=== PATIENT | female | born 1935 | race Caucasian/White ===

== ENCOUNTER 2016-09-10 10:38 | Outpatient (CLI) | payer MEDICARE, BC ==
[~2016-09-10] VITALS: Ht 160 cm; Wt 56.8 kg
[~2016-09-10 10:38] MED LIST: ANACIN PO; ASPIR-LOW81 MG PO; ASPIRIN 32325 MG/TAB PO; ASPIRIN E.C. 8181 MG PO; CALCIUM + D 6001 TA1 PO; CARAFATE S1 GM/10 ML PO; LASIX 20MG TABL20 MG PO; LOMOTIL 0.025 M1 TAB PO; LORTAB 5/500 501 TAB; LORTAB 5/500 501 TAB PO; NORCO 325 MG-51 TAB PO; PERCOCET 325 MG1 TA2 PO; PRILOSEC 20MG20 MG PO; RECLAST5 MG/100 M IV; RT SPIRIVA18 MCG IH; SPIRIVA INH IH; VALIUM 2MG T2 MG/TAB PO; ZOFRAN 4MG T4 MG/TAB PO
[2016-09-10 11:09] VITALS: BP 144/52; PULSE 77; TEMP 97.6
== END 2016-09-10 14:11 | disposition home or self-care (01) ==
LOC: EUO 10:38
DX: M81.0 Age-related osteoporosis without current pathological fracture (principal)
CPT/HCPCS: J3489

== ENCOUNTER 2016-12-07 16:38 | Inpatient (IN) | payer MEDICARE, BC ==
[~2016-12-07] VITALS: Ht 162.6 cm; Wt 59.2 kg
[2016-12-07 18:00] VITALS: BP 172/68; PULSE 87; TEMP 98
[2016-12-07] MEDS ORDERED: XALATAN EYE DROPS OD (18:07)
[2016-12-07 19:25] LABS: MAGNESIUM 1.8 mg/dL (1.6-2.3); PHOSPHOROUS 3.4 mg/dL (2.5-4.5)
[2016-12-07 19:56] LABS: THYROID STIMULATING HORMONE 0.503 uIU/mL (0.465-4.680)
[2016-12-07 20:02] LABS: POTASSIUM 4.6 mmol/L (3.4-5.0)
[2016-12-07 21:25] VITALS: BP 1205/51; PULSE 71; TEMP 98.4
[2016-12-07 21:42] VITALS: BP 147/63; PULSE 79; TEMP 98.8
[2016-12-08] VITALS (11 sets, daily range): BP systolic 139–165; BP diastolic 46–90; PULSE 68–115; TEMP 97–98.4
[2016-12-08 07:44] LABS: ADJUSTED CALCIUM 9.2 mg/dL (8.4-10.2); ALBUMIN 3.7 gm/dL (3.5-5.0); BILIRUBIN,TOTAL 0.7 mg/dL (0.0-1.0); CREATININE, serum 0.77 mg/dL (0.52-1.25); POTASSIUM 3.7 mmol/L (3.4-5.0)
[2016-12-09] VITALS (7 sets, daily range): BP systolic 116–181; BP diastolic 53–89; PULSE 73–111; TEMP 97–98.7
[2016-12-10] VITALS (7 sets, daily range): BP systolic 111–142; BP diastolic 48–70; PULSE 71–99; TEMP 97.8–99.3
[2016-12-10 07:46] LABS: BASO % 0.9 % (0.0-2.0); EOS # 0.2 (0.0-0.7); EOS % 3.6 % (0-4.0); GRAN # 2.9 (1.4-6.5); GRAN % 62.3 % (42.2-75.2); HEMOGLOBIN 12.8 g/dl (12.5-16.0); LYMPH % 20.6 % (20.0-51.0); MEAN CELL VOLUME 88 fl (80.0-100.0); MEAN CORPUSCULAR HEMOGLOBIN 29 pg (27.0-31.0); MEAN CORPUSCULAR HGB CONC 33 g/dl (33.0-37.0); MEAN PLATELET VOLUME 10.3 fl (7.4-10.4); MONO # 0.6 (0.1-0.6); MONO % 12.4 % (1.7-9.3); PLATELET COUNT 129 K/mm3 (130-400); RED BLOOD COUNT 4.41 M/mm3 (4.10-5.30); REDCELL DISTRIBUTION WIDTH-CV 13.6 % (11.5-14.5); WHITE BLOOD COUNT 4.7 K/mm3 (4.8-10.8)
[2016-12-10 08:04] LABS: CALCIUM 9.2 mg/dL (8.4-10.2); POTASSIUM 3.9 mmol/L (3.4-5.0)
[2016-12-11 04:34] VITALS: BP 93/46; PULSE 87; TEMP 98.6
[2016-12-11 05:17] VITALS: BP 152/60
[2016-12-11 07:49] VITALS: BP 98/45; PULSE 78; TEMP 98.3
[2016-12-11 08:03] LABS: BASO % 0.8 % (0.0-2.0); EOS # 0.1 (0.0-0.7); EOS % 1.7 % (0-4.0); GRAN # 3.3 (1.4-6.5); GRAN % 70.3 % (42.2-75.2); HEMATOCRIT 38.7 % (37.0-47.0); HEMOGLOBIN 12.9 g/dl (12.5-16.0); LYMPH # 0.7 (1.2-3.4); LYMPH % 15.4 % (20.0-51.0); MEAN CELL VOLUME 87 fl (80.0-100.0); MEAN CORPUSCULAR HEMOGLOBIN 29 pg (27.0-31.0); MEAN CORPUSCULAR HGB CONC 33 g/dl (33.0-37.0); MEAN PLATELET VOLUME 9.9 fl (7.4-10.4); MONO # 0.6 (0.1-0.6); MONO % 11.6 % (1.7-9.3); PLATELET COUNT 112 K/mm3 (130-400); RED BLOOD COUNT 4.43 M/mm3 (4.10-5.30); REDCELL DISTRIBUTION WIDTH-CV 13.8 % (11.5-14.5); WHITE BLOOD COUNT 4.7 K/mm3 (4.8-10.8)
[2016-12-11 08:13] LABS: CALCIUM 9.5 mg/dL (8.4-10.2); CREATININE, serum 2.44 mg/dL (0.52-1.25); POTASSIUM 5.1 mmol/L (3.4-5.0)
[2016-12-11 10:46] LABS: CALCIUM 9.7 mg/dL (8.4-10.2); CREATININE, serum 2.43 mg/dL (0.52-1.25); POTASSIUM 5.1 mmol/L (3.4-5.0)
[2016-12-11 12:00] VITALS: BP 126/74; PULSE 85; TEMP 97.5
[2016-12-11 16:02] VITALS: BP 114/53; PULSE 81; TEMP 98.2
[2016-12-11 20:20] VITALS: BP 111/46; PULSE 74; TEMP 98.1
[2016-12-12] VITALS (7 sets, daily range): BP systolic 113–143; BP diastolic 42–65; PULSE 75–88; TEMP 97.5–98.7
[2016-12-12 06:48] LABS: CALCIUM 9.6 mg/dL (8.4-10.2); CREATININE, serum 2.87 mg/dL (0.52-1.25); MAGNESIUM 2.4 mg/dL (1.6-2.3)
[2016-12-12 06:53] LABS: POTASSIUM 6.1 mmol/L (3.4-5.0)
[2016-12-12 09:38] LABS: CALCIUM 9.7 mg/dL (8.4-10.2); CREATININE, serum 2.65 mg/dL (0.52-1.25); POTASSIUM 5.7 mmol/L (3.4-5.0)
[2016-12-12 14:36] LABS: PH 5 (5-8); SQUAMOUS EPITHELIAL 0-2 /hpf; URINE APPEARANCE Clear; URINE BACTERIA None Seen /hpf; URINE BILIRUBIN Negative (NEGATIVE); URINE BLOOD Negative (NEGATIVE); URINE COLOR Yellow; URINE GLUCOSE Negative (NEGATIVE); URINE KETONE Negative (NEGATIVE); URINE RBC 0-2 /hpf
[2016-12-12 14:46] LABS: URINE PROTEIN:CREAT RATIO 0.06 (0.00-0.14)
[2016-12-13] VITALS (16 sets, daily range): BP systolic 113–151; BP diastolic 43–59; PULSE 64–88; TEMP 97.7–98.8
[2016-12-13 06:16] LABS: BASO % 0.4 % (0.0-2.0); EOS # 0.2 (0.0-0.7); EOS % 7.5 % (0-4.0); GRAN # 1.1 (1.4-6.5); GRAN % 43.9 % (42.2-75.2); HEMATOCRIT 33.8 % (37.0-47.0); HEMOGLOBIN 10.7 g/dl (12.5-16.0); LYMPH # 0.9 (1.2-3.4); LYMPH % 35.3 % (20.0-51.0); MEAN CELL VOLUME 91 fl (80.0-100.0); MEAN CORPUSCULAR HEMOGLOBIN 29 pg (27.0-31.0); MEAN CORPUSCULAR HGB CONC 32 g/dl (33.0-37.0); MEAN PLATELET VOLUME 10.1 fl (7.4-10.4); MONO # 0.3 (0.1-0.6); MONO % 12.5 % (1.7-9.3); PLATELET COUNT 90 K/mm3 (130-400); RED BLOOD COUNT 3.73 M/mm3 (4.10-5.30); REDCELL DISTRIBUTION WIDTH-CV 13.6 % (11.5-14.5); WHITE BLOOD COUNT 2.6 K/mm3 (4.8-10.8)
[2016-12-13 06:28] LABS: CREATININE, serum 1.45 mg/dL (0.52-1.25); POTASSIUM 4.6 mmol/L (3.4-5.0)
[2016-12-13 09:45] LABS: PROTHROMBIN TIME 11.1 SECONDS (9.7-12.8)
[2016-12-14 00:04] VITALS: BP 109/44; PULSE 66; TEMP 97.5
[2016-12-14 03:14] VITALS: BP 116/41; PULSE 63; TEMP 98.4
[2016-12-14 06:57] LABS: BASO % 0.6 % (0.0-2.0); EOS # 0.2 (0.0-0.7); EOS % 5.8 % (0-4.0); GRAN # 1.8 (1.4-6.5); GRAN % 56.4 % (42.2-75.2); LYMPH # 0.8 (1.2-3.4); LYMPH % 25.8 % (20.0-51.0); MEAN CELL VOLUME 90 fl (80.0-100.0); MEAN CORPUSCULAR HGB CONC 32 g/dl (33.0-37.0); MEAN PLATELET VOLUME 10.6 fl (7.4-10.4); MONO # 0.4 (0.1-0.6); MONO % 11.1 % (1.7-9.3); PLATELET COUNT 106 K/mm3 (130-400); REDCELL DISTRIBUTION WIDTH-CV 13.5 % (11.5-14.5); WHITE BLOOD COUNT 3.3 K/mm3 (4.8-10.8)
[2016-12-14 07:00] LABS: HEMATOCRIT 34.3 % (37.0-47.0); HEMOGLOBIN 10.8 g/dl (12.5-16.0); MEAN CORPUSCULAR HEMOGLOBIN 28 pg (27.0-31.0)
[2016-12-14 07:10] LABS: CALCIUM 9.4 mg/dL (8.4-10.2); CREATININE, serum 1.07 mg/dL (0.52-1.25)
[2016-12-14 08:02] VITALS: BP 122/45; PULSE 71; TEMP 98.1
[2016-12-14] MEDS ORDERED: ASPIRIN 81M81 MG/TA2 PO (09:04)
[2016-12-14] MEDS ORDERED: LIPITOR 40MG TA40 MG PO (09:20)
[2016-12-14] MEDS ORDERED: BIDIL 37.5 MG-21 TAB PO (09:24)
[2016-12-14] MEDS ORDERED: MIRALAX PA17 GM/Dose PO (09:25)
[2016-12-14] MEDS ORDERED: COREG 3.123.125 MG/T PO (09:25)
[2016-12-14 12:20] VITALS: BP 122/45; PULSE 71; TEMP 98.1
== END 2016-12-14 13:00 | DRG 287 ==
LOC: MEDICAL 16:38
PROVIDERS: Internal Medicine; Internal Medicine Cardiovascular Disease; Nurse Practitioner Family; Physician Assistant
PROC: 0D738ZZ Dilation of Lower Esophagus, Via Natural or Artificial Opening Endoscopic (ICD-10-PCS; 2016-12-08)
PROC: B2111ZZ Fluoroscopy of Multiple Coronary Arteries using Low Osmolar Contrast (ICD-10-PCS; principal; 2016-12-13)
DX: I11.0 Hypertensive heart disease with heart failure (principal); N17.9 Acute kidney failure, unspecified; E87.1 Hypo-osmolality and hyponatremia; I50.21 Acute systolic (congestive) heart failure; E87.5 Hyperkalemia; K22.2 Esophageal obstruction; K21.9 Gastro-esophageal reflux disease without esophagitis; K44.9 Diaphragmatic hernia without obstruction or gangrene; J44.9 Chronic obstructive pulmonary disease, unspecified; Z87.891 Personal history of nicotine dependence; I25.110 Atherosclerotic heart disease of native coronary artery with unstable angina pectoris; I73.9 Peripheral vascular disease, unspecified; D69.6 Thrombocytopenia, unspecified; D64.9 Anemia, unspecified
CPT/HCPCS: 99223-AI; 99233-AI; 99239; C1760; C1769; C1894; C9113; J0610; J1650; J1940; J2270; J2405; J2704; J3010; J7030; J7040; Q9967

== ENCOUNTER → 2016-12-16 | Outpatient (REF) ==
[~2016-12-16] MED LIST changes: +ASPIRIN 81M81 MG/TA2 PO; +BIDIL 37.5 MG-21 TAB PO; +COREG 3.123.125 MG/T PO; +LIPITOR 40MG TA40 MG PO; +MIRALAX PA17 GM/Dose PO; +XALATAN EYE DROPS OD
[2016-12-16 17:44] LABS: BASO # 0.1 (0.0-0.2); BASO % 1.5 % (0.0-2.0); EOS # 0.2 (0.0-0.7); EOS % 3.4 % (0-4.0); GRAN # 2.8 (1.4-6.5); GRAN % 58.5 % (42.2-75.2); LYMPH # 1.2 (1.2-3.4); LYMPH % 26.1 % (20.0-51.0); MEAN CELL VOLUME 90 fl (80.0-100.0); MEAN CORPUSCULAR HGB CONC 32 g/dl (33.0-37.0); MEAN PLATELET VOLUME 10.8 fl (7.4-10.4); MONO # 0.5 (0.1-0.6); MONO % 10.1 % (1.7-9.3); PLATELET COUNT 170 K/mm3 (130-400); RED BLOOD COUNT 3.97 M/mm3 (4.10-5.30); REDCELL DISTRIBUTION WIDTH-CV 13.9 % (11.5-14.5); WHITE BLOOD COUNT 4.8 K/mm3 (4.8-10.8)
[2016-12-16 17:53] LABS: HEMATOCRIT 35.9 % (37.0-47.0); HEMOGLOBIN 11.3 g/dl (12.5-16.0); MEAN CORPUSCULAR HEMOGLOBIN 28 pg (27.0-31.0)
[2016-12-16 17:54] LABS: ADJUSTED CALCIUM 9.6 mg/dL (8.4-10.2); ALANINE AMINOTRANSFERASE 20 U/L (9-52); ALBUMIN 4.1 gm/dL (3.5-5.0); ALKALINE PHOSPHATASE 58 U/L (50-136); ANION GAP 10 mmol/L (7-16); BILIRUBIN,TOTAL 0.5 mg/dL (0.0-1.0); BLOOD UREA NITROGEN 27 mg/dL (7-17); CALCIUM 9.7 mg/dL (8.4-10.2); CARBON DIOXIDE 27 mmol/L (22-30); CHLORIDE 97 mmol/L (98-107); CREATININE, serum 1.34 mg/dL (0.52-1.25); GLUCOSE 129 mg/dL (74-106); POTASSIUM 4.8 mmol/L (3.4-5.0); SODIUM 134 mmol/L (137-145); TOTAL PROTEIN 6.8 gm/dL (6.4-8.2)
[2016-12-16 18:06] LABS: TROPONIN-I < 0.012 ng/mL (0.000-0.034)
== END ==
LOC: ZCOL.LAB 17:40
PROVIDERS: Internal Medicine
DX: R07.9 Chest pain, unspecified (principal)

== ENCOUNTER 2017-06-14 12:41 | Inpatient (IN) | payer MEDICARE, BC ==
[~2017-06-14] VITALS: Ht 160 cm; Wt 52.3 kg
[2017-06-14 13:21] LABS: BASO % 0.5 % (0.0-2.0); EOS # 0.1 (0.0-0.7); EOS % 1.5 % (0-4.0); GRAN # 4.4 (1.4-6.5); GRAN % 67.7 % (42.2-75.2); HEMATOCRIT 40.7 % (37.0-47.0); HEMOGLOBIN 12.9 g/dl (12.5-16.0); LYMPH # 1.5 (1.2-3.4); LYMPH % 22.9 % (20.0-51.0); MEAN CELL VOLUME 90 fl (80.0-100.0); MEAN CORPUSCULAR HEMOGLOBIN 29 pg (27.0-31.0); MEAN CORPUSCULAR HGB CONC 32 g/dl (33.0-37.0); MEAN PLATELET VOLUME 10.2 fl (7.4-10.4); MONO # 0.5 (0.1-0.6); MONO % 7.2 % (1.7-9.3); PLATELET COUNT 142 K/mm3 (130-400); REDCELL DISTRIBUTION WIDTH-CV 14.6 % (11.5-14.5)
[2017-06-14 13:23] LABS: ALANINE AMINOTRANSFERASE 19 U/L (9-52); ALBUMIN 3.6 gm/dL (3.5-5.0); ALKALINE PHOSPHATASE 97 U/L (50-136); ANION GAP 8 mmol/L (7-16); AST,SGOT 18 U/L (15-37); BILIRUBIN,TOTAL 0.4 mg/dL (0.0-1.0); BLOOD UREA NITROGEN 29 mg/dL (7-17); C-REACTIVE PROTEIN 0.9 mg/dL (0.0-0.9); CALCIUM 9.5 mg/dL (8.4-10.2); CARBON DIOXIDE 28 mmol/L (22-30); CHLORIDE 106 mmol/L (98-107); CREATININE, serum 1.04 mg/dL (0.52-1.25); GLUCOSE 113 mg/dL (74-106); POTASSIUM 3.7 mmol/L (3.4-5.0); SODIUM 143 mmol/L (137-145); TOTAL PROTEIN 6.6 gm/dL (6.4-8.2)
[2017-06-14 13:38] LABS: TROPONIN-I < 0.012 ng/mL (0.000-0.034)
[2017-06-14] MEDS ORDERED: COLACE 100100 MG/CAP PO (14:02)
[2017-06-14 17:00] VITALS: BP 132/62; PULSE 88; TEMP 98.7
[2017-06-14 18:53] VITALS: BP 132/62; PULSE 88; TEMP 98.7
[2017-06-14 20:27] VITALS: BP 138/61; PULSE 89; TEMP 97.9
[2017-06-15 00:28] VITALS: BP 127/62; PULSE 85; TEMP 97.8
[2017-06-15 04:01] VITALS: BP 141/74; PULSE 81; TEMP 97.9
[2017-06-15 07:30] LABS: BASO % 0.2 % (0.0-2.0); GRAN # 3.2 (1.4-6.5); GRAN % 68.2 % (42.2-75.2); HEMATOCRIT 40.6 % (37.0-47.0); HEMOGLOBIN 12.9 g/dl (12.5-16.0); LYMPH # 1.1 (1.2-3.4); LYMPH % 22.9 % (20.0-51.0); MEAN CELL VOLUME 89 fl (80.0-100.0); MEAN CORPUSCULAR HEMOGLOBIN 28 pg (27.0-31.0); MEAN CORPUSCULAR HGB CONC 32 g/dl (33.0-37.0); MEAN PLATELET VOLUME 10.4 fl (7.4-10.4); MONO # 0.4 (0.1-0.6); MONO % 8.1 % (1.7-9.3); PLATELET COUNT 152 K/mm3 (130-400); RED BLOOD COUNT 4.58 M/mm3 (4.10-5.30); REDCELL DISTRIBUTION WIDTH-CV 14.5 % (11.5-14.5)
[2017-06-15 07:47] LABS: CALCIUM 9.4 mg/dL (8.4-10.2); CREATININE, serum 0.93 mg/dL (0.52-1.25); PHOSPHOROUS 4.1 mg/dL (2.5-4.5); POTASSIUM 3.8 mmol/L (3.4-5.0)
[2017-06-15 08:22] VITALS: BP 139/61; PULSE 82; TEMP 97.9
[2017-06-15 11:12] VITALS: BP 123/46; PULSE 72; TEMP 97.5
[2017-06-15 15:55] VITALS: BP 129/57; PULSE 88; TEMP 97.6
[2017-06-15 19:12] VITALS: BP 121/56; PULSE 89; TEMP 98.4
[2017-06-16] VITALS (7 sets, daily range): BP systolic 113–150; BP diastolic 38–63; PULSE 66–94; TEMP 98.1–98.5
[2017-06-16 07:47] LABS: BASO % 0.4 % (0.0-2.0); EOS % 0.2 % (0-4.0); GRAN # 3.6 (1.4-6.5); LYMPH # 1.4 (1.2-3.4); LYMPH % 25.7 % (20.0-51.0); MEAN CELL VOLUME 89 fl (80.0-100.0); MEAN CORPUSCULAR HGB CONC 33 g/dl (33.0-37.0); MEAN PLATELET VOLUME 10.4 fl (7.4-10.4); MONO # 0.4 (0.1-0.6); MONO % 7.3 % (1.7-9.3); PLATELET COUNT 136 K/mm3 (130-400); RED BLOOD COUNT 3.93 M/mm3 (4.10-5.30); REDCELL DISTRIBUTION WIDTH-CV 14.4 % (11.5-14.5)
[2017-06-16 07:56] LABS: HEMATOCRIT 34.8 % (37.0-47.0); HEMOGLOBIN 11.4 g/dl (12.5-16.0); MEAN CORPUSCULAR HEMOGLOBIN 29 pg (27.0-31.0)
[2017-06-16 07:58] LABS: CALCIUM 9.3 mg/dL (8.4-10.2); CREATININE, serum 0.8 mg/dL (0.52-1.25); MAGNESIUM 2.3 mg/dL (1.6-2.3); PHOSPHOROUS 2.9 mg/dL (2.5-4.5); POTASSIUM 3.9 mmol/L (3.4-5.0)
[2017-06-17 03:47] VITALS: BP 122/49; PULSE 93; TEMP 98.3
[2017-06-17 07:49] LABS: BASO % 0.1 % (0.0-2.0); EOS % 0.1 % (0-4.0); GRAN # 5.8 (1.4-6.5); GRAN % 74.2 % (42.2-75.2); HEMATOCRIT 38.6 % (37.0-47.0); HEMOGLOBIN 12.3 g/dl (12.5-16.0); LYMPH # 1.5 (1.2-3.4); LYMPH % 18.5 % (20.0-51.0); MEAN CELL VOLUME 90 fl (80.0-100.0); MEAN CORPUSCULAR HEMOGLOBIN 29 pg (27.0-31.0); MEAN CORPUSCULAR HGB CONC 32 g/dl (33.0-37.0); MEAN PLATELET VOLUME 10.2 fl (7.4-10.4); MONO # 0.5 (0.1-0.6); MONO % 6.6 % (1.7-9.3); PLATELET COUNT 165 K/mm3 (130-400); RED BLOOD COUNT 4.29 M/mm3 (4.10-5.30); REDCELL DISTRIBUTION WIDTH-CV 14.5 % (11.5-14.5)
[2017-06-17 08:00] VITALS: BP 135/44; PULSE 75; TEMP 97.6
[2017-06-17 08:03] LABS: CALCIUM 9.4 mg/dL (8.4-10.2); CREATININE, serum 0.84 mg/dL (0.52-1.25); MAGNESIUM 2.7 mg/dL (1.6-2.3); POTASSIUM 4.5 mmol/L (3.4-5.0)
[2017-06-17] MEDS ORDERED: IPRATROPIUM BROM3 M1 IH (09:17)
[2017-06-17] MEDS ORDERED: NORCO 325 MG-51 TAB PO (09:19)
[2017-06-17] MEDS ORDERED: PREDNISONE10 MG PO (09:21)
[2017-06-17 12:00] VITALS: BP 128/49; PULSE 74; TEMP 98.4
[2017-06-17 13:13] VITALS: BP 128/49; PULSE 74; TEMP 98.4
== END 2017-06-17 13:20 | DRG 191 ==
LOC: COL.ER 12:41 → MEDICAL 15:38
PROVIDERS: Emergency Medicine; Internal Medicine
DX: J44.1 Chronic obstructive pulmonary disease with (acute) exacerbation (principal); I50.22 Chronic systolic (congestive) heart failure; E44.0 Moderate protein-calorie malnutrition; Z87.891 Personal history of nicotine dependence; I27.22 Pulmonary hypertension due to left heart disease; R73.9 Hyperglycemia, unspecified
CPT/HCPCS: 99222-AI; 99231-AI; 99232-AI; 99239; J1650; J1940; J7512

== ENCOUNTER → 2017-07-04 | Outpatient (CLI) | payer MEDICARE, BC ==
[~2017-07-04] MED LIST changes: +COLACE 100100 MG/CAP PO; +IPRATROPIUM BROM3 M1 IH; +PREDNISONE10 MG PO
== END ==
LOC: COL.RAD 10:30
DX: J98.4 Other disorders of lung (principal); I77.810 Thoracic aortic ectasia
CPT/HCPCS: Q9967

== ENCOUNTER → 2017-07-07 | Outpatient (REF) ==
[2017-07-07 10:41] LABS: COLLECTION METHOD CLEAN CATCH
[2017-07-07 10:47] LABS: MUCOUS Present /lpf; PH 5 (5-8); SQUAMOUS EPITHELIAL None Seen /hpf; URINE APPEARANCE Clear; URINE BACTERIA None Seen /hpf; URINE BILIRUBIN Negative (NEGATIVE); URINE BLOOD Negative (NEGATIVE); URINE COLOR Yellow; URINE GLUCOSE Negative (NEGATIVE); URINE KETONE Negative (NEGATIVE); URINE LEUKOCYTE ESTERASE Trace (NEGATIVE); URINE NITRATE Negative (NEGATIVE); URINE PROTEIN(semi-quant) Negative (NEGATIVE); URINE RBC 0-2 /hpf; URINE UROBILINOGEN >=4.0 mg/dL (NEGATIVE)
== END ==
LOC: ZCOL.LAB 10:37
PROVIDERS: Internal Medicine
DX: R30.0 Dysuria (principal); R50.9 Fever, unspecified

== ENCOUNTER 2017-08-23 16:55 | Emergency (ER) | payer MEDICARE, BC ==
[~2017-08-23] VITALS: Ht 160 cm; Wt 53.2 kg
[2017-08-23] MEDS ORDERED: PRIL40 PO (17:15)
[2017-08-23] MEDS ORDERED: NORCO 325 MG-51 TAB PO (17:15)
[2017-08-23] MEDS ORDERED: MIRTAZAPINE7.5 MG PO (17:16)
[2017-08-23] MEDS ORDERED: COREG 3.123.125 MG/T PO (17:16)
[2017-08-23] MEDS ORDERED: LIPITOR 40MG TA40 MG PO (17:16)
[2017-08-23] MEDS ORDERED: IMDUR 30MG30 MG/TAB PO (17:17)
[2017-08-23] MEDS ORDERED: PLAVIX 75MG TAB75 MG PO (17:17)
[2017-08-23] MEDS ORDERED: LASIX 20MG TABL20 MG PO (17:18)
[2017-08-23] MEDS ORDERED: ASPIRIN 81M81 MG/TA2 PO (17:19)
[2017-08-23 17:21] VITALS: BP 151/65; PULSE 79; TEMP 98.7
== END 2017-08-23 21:08 | disposition home or self-care (01) ==
LOC: COL.ER 16:55
DX: S82.144A Nondisplaced bicondylar fracture of right tibia, initial encounter for closed fracture (principal); M81.0 Age-related osteoporosis without current pathological fracture; Z87.891 Personal history of nicotine dependence; Z87.19 Personal history of other diseases of the digestive system; Z88.6 Allergy status to analgesic agent; Z79.82 Long term (current) use of aspirin; X50.0XXA Overexertion from strenuous movement or load, initial encounter
CPT/HCPCS: J1885; L1846

== ENCOUNTER → 2017-09-27 | Outpatient (CLI) | payer MEDICARE, BC ==
[~2017-09-27] MED LIST changes: +IMDUR 30MG30 MG/TAB PO; +MIRTAZAPINE7.5 MG PO; +PLAVIX 75MG TAB75 MG PO; +PRIL40 PO
== END ==
LOC: COL.RAD 13:42
DX: S82.201A Unspecified fracture of shaft of right tibia, initial encounter for closed fracture (principal)

== ENCOUNTER 2017-12-02 12:58 | Outpatient (CLI) | payer MEDICARE, BC ==
[~2017-12-02] VITALS: Ht 160 cm; Wt 54.0 kg
[2017-12-02 13:30] VITALS: BP 132/45; PULSE 69; TEMP 97.4
[2017-12-02] MEDS ORDERED: COLACE 100100 MG/CAP PO (14:14)
[2017-12-02] MEDS ORDERED: ANORO IH (14:15)
[2017-12-02] MEDS ORDERED: IPRATROPIUM BROM3 M1 IH (14:17)
[2017-12-02] MEDS ORDERED: VITAMIND3 5000 PO (14:25)
[2017-12-02] MEDS ORDERED: PROTONIX 40MG T40 MG PO (14:26)
[2017-12-02] MEDS ORDERED: XALATAN EYE DROPS OD (14:27)
== END 2017-12-02 14:29 | disposition home or self-care (01) ==
LOC: EUO 12:58
DX: M81.0 Age-related osteoporosis without current pathological fracture (principal)
CPT/HCPCS: J3489

== ENCOUNTER → 2018-01-16 | Outpatient (CLI) | payer MEDICARE, BC ==
[~2018-01-16] MED LIST changes: +ANORO IH; +COZAAR 25MG25 MG/TAB PO; +NITROSTAT0.4 MG/TAB SL; +PROTONIX 40MG T40 MG PO; +SENNA8.6 MG PO; +VITAMIND3 5000 PO; +XALATAN EYE DROPS OU; +ZESTRIL 5MG5 MG PO
== END ==
LOC: COL.RAD 13:59
DX: N26.1 Atrophy of kidney (terminal) (principal); N28.89 Other specified disorders of kidney and ureter; N30.01 Acute cystitis with hematuria

== ENCOUNTER → 2018-07-18 | Outpatient (CLI) | payer MEDICARE, BC ==
[~2018-07-18] MED LIST changes: +CLARITIN 1010 MG/TAB PO; +GLUCOSAMIN 500 PO; +PAMELOR 10MG10 MG PO; +TYLENOL PM EXTR1 TA1 PO
== END ==
LOC: COL.RAD 17:06
DX: J44.9 Chronic obstructive pulmonary disease, unspecified (principal); R79.89 Other specified abnormal findings of blood chemistry; Z98.890 Other specified postprocedural states
CPT/HCPCS: Q9967

== ENCOUNTER 2018-07-19 20:11 | Inpatient (IN) | payer MEDICARE, BC ==
[~2018-07-19] VITALS: Ht 160 cm; Wt 55.3 kg
[~2018-07-19 20:11] MED LIST changes: -CLARITIN 1010 MG/TAB PO; -GLUCOSAMIN 500 PO; -PAMELOR 10MG10 MG PO; -TYLENOL PM EXTR1 TA1 PO
[2018-07-19 21:04] LABS: BASO # 0.1 (0.0-0.2); BASO % 0.9 % (0.0-2.0); EOS # 0.3 (0.0-0.7); EOS % 6.1 % (0-4.0); GRAN # 3.7 (1.4-6.5); GRAN % 66.5 % (42.2-75.2); HEMATOCRIT 38.8 % (37.0-47.0); HEMOGLOBIN 12.2 g/dl (12.5-16.0); LYMPH % 17.3 % (20.0-51.0); MEAN CELL VOLUME 89 fl (80.0-100.0); MEAN CORPUSCULAR HEMOGLOBIN 28 pg (27.0-31.0); MEAN CORPUSCULAR HGB CONC 31 g/dl (33.0-37.0); MEAN PLATELET VOLUME 9.5 fl (7.4-10.4); MONO # 0.5 (0.1-0.6); MONO % 8.8 % (1.7-9.3); PLATELET COUNT 206 K/mm3 (130-400); RED BLOOD COUNT 4.38 M/mm3 (4.10-5.30); REDCELL DISTRIBUTION WIDTH-CV 14.5 % (11.5-14.5)
[2018-07-19 21:11] LABS: ARTERIAL BLD GAS O2 SATURATION 92.5 % (92-100); ARTERIAL BLD GAS TCO2 CT 31.9; ARTERIAL BLOOD GAS BASE EXCESS 5.3 (-2-2); ARTERIAL BLOOD GAS HCO3 30.5 meq/L (22-26); ARTERIAL BLOOD GAS PO2 69.8 mmHg (80-100); ARTERIAL BLOOD GAS pH 7.43 (7.35-7.45)
[2018-07-19 21:18] LABS: ALANINE AMINOTRANSFERASE < 6 U/L (9-52); ALBUMIN 3.7 gm/dL (3.5-5.0); ALKALINE PHOSPHATASE 66 U/L (50-136); ANION GAP 8 mmol/L (7-16); AST,SGOT 19 U/L (15-37); BILIRUBIN,TOTAL 0.4 mg/dL (0.0-1.0); BLOOD UREA NITROGEN 29 mg/dL (7-17); C-REACTIVE PROTEIN 0.8 mg/dL (0.0-0.9); CARBON DIOXIDE 33 mmol/L (22-30); CHLORIDE 98 mmol/L (98-107); GLUCOSE 119 mg/dL (74-106); LIPASE 106 U/L (23-300); POTASSIUM 4.2 mmol/L (3.4-5.0); SODIUM 138 mmol/L (137-145); TOTAL PROTEIN 6.9 gm/dL (6.4-8.2)
[2018-07-19 21:33] LABS: TROPONIN-I < 0.012 ng/mL (0.000-0.035)
[2018-07-19 21:38] LABS: COLLECTION METHOD CATHETER
[2018-07-19 22:00] LABS: MUCOUS Present /lpf; PH 5 (5-8); SQUAMOUS EPITHELIAL 0-2 /hpf; URINE APPEARANCE Hazy; URINE BACTERIA Rare /hpf; URINE BILIRUBIN Negative (NEGATIVE); URINE BLOOD Negative (NEGATIVE); URINE COLOR Yellow; URINE GLUCOSE Negative (NEGATIVE); URINE KETONE Negative (NEGATIVE); URINE LEUKOCYTE ESTERASE Negative (NEGATIVE); URINE NITRATE Negative (NEGATIVE); URINE PROTEIN(semi-quant) Negative (NEGATIVE); URINE RBC 0-2 /hpf; URINE UROBILINOGEN Negative (NEGATIVE)
[2018-07-19] MEDS ORDERED: PAMELOR 10MG10 MG PO (23:35)
[2018-07-19] MEDS ORDERED: TYLENOL PM EXTR1 TA1 PO (23:35)
--- NOTE | 2018-07-20 | NUR ---
Pt arrived to room 316, transferred per stretcher by ED staff. Pt awake, a&o, cooperative c cares. IV patent. O2 per NC. Tele in place. Da at bedside. Pt/family oriented to room, unit policies et current POC. Questions invited et answered et pt verbalizes understanding. Pt/family s needs at this time. Call light in reach, will continue c admit process.
[2018-07-20 00:02] VITALS: BP 117/79; PULSE 75; PULSE 80; TEMP 98.2; TEMP 98.8
--- NOTE | 2018-07-20 01:54 | NUR ---
PT HAS A STRONG LOOSE NONPRODUCTIVE COUGH
[2018-07-20 03:57] VITALS: BP 117/79; PULSE 75; TEMP 98.8
[2018-07-20] MEDS ORDERED: CLARITIN 1010 MG/TAB PO (06:18)
[2018-07-20] MEDS ORDERED: GLUCOSAMIN 500 PO (06:19)
[2018-07-20 08:02] LABS: BASO % 0.4 % (0.0-2.0); EOS % 0.6 % (0-4.0); GRAN % 90.7 % (42.2-75.2); HEMOGLOBIN 11.2 g/dl (12.5-16.0); LYMPH # 0.4 (1.2-3.4); LYMPH % 6.8 % (20.0-51.0); MEAN CELL VOLUME 90 fl (80.0-100.0); MEAN CORPUSCULAR HEMOGLOBIN 28 pg (27.0-31.0); MEAN CORPUSCULAR HGB CONC 31 g/dl (33.0-37.0); MEAN PLATELET VOLUME 9.6 fl (7.4-10.4); MONO # 0.1 (0.1-0.6); MONO % 1.1 % (1.7-9.3); PLATELET COUNT 142 K/mm3 (130-400); RED BLOOD COUNT 4.08 M/mm3 (4.10-5.30); REDCELL DISTRIBUTION WIDTH-CV 14.5 % (11.5-14.5)
[2018-07-20 08:06] LABS: HEMATOCRIT 36.6 % (37.0-47.0)
[2018-07-20 08:07] VITALS: BP 128/42; PULSE 70; TEMP 97.5
[2018-07-20 08:11] LABS: ALBUMIN 3.3 gm/dL (3.5-5.0); BILIRUBIN,TOTAL 0.3 mg/dL (0.0-1.0); CALCIUM 9.4 mg/dL (8.4-10.2); CREATININE, serum 1.05 mg/dL (0.52-1.25); POTASSIUM 3.6 mmol/L (3.4-5.0); TOTAL PROTEIN 6.2 gm/dL (6.4-8.2)
--- NOTE | 2018-07-20 09:00 | NUR ---
pT IS resting in bed, audible wheezing on 2 L oxygen via NC, but when woken pt speaks without SOB and denies the same. Lungs are coarse and wheezey. Physical assessmnet completed. Pt is A+Ox3. denies pain. Iv free of redness, swelling. She is independent in bed. Denies needs[facility]
--- NOTE | 2018-07-20 11:30 | NUR ---
Patient lives at [facility] and plans to return to [facility] upon discharge. Patient's family, especially her daughter (Cindy Ross) is supportive and is patient's DPOA. Patient ambulates with assistance and has no durable medical equipment anticipated needs at this time. Patient's primary care physician is Dr. Ray Eagle, her pharmacy is [facility] and she does have advance directives completed. No further needs at this time and social organization professor will follow as needed.
[2018-07-20 11:54] VITALS: BP 133/46; PULSE 66; TEMP 98
[2018-07-20 11:58] LABS: ARTERIAL BLD GAS O2 SATURATION 90.5 % (92-100); ARTERIAL BLD GAS TCO2 CT 31.8; ARTERIAL BLOOD GAS HCO3 30.4 meq/L (22-26); ARTERIAL BLOOD GAS PCO2 48.2 mmHg (35-45); ARTERIAL BLOOD GAS PO2 59.6 mmHg (80-100); ARTERIAL BLOOD GAS pH 7.42 (7.35-7.45)
--- NOTE | 2018-07-20 14:10 | NUR ---
This Rn had covnersation with pt'd daughter and her about end of life, they understand from Dr Martinez that that would be best option for pt. This RN in room when pt discussed, "I'm so tired, I want to , I want to go home". This Rn at bedside with pt who asked about dying process and had several questions on end of life. Answers and support provided, also Discussed Demetra De Jesus coming in on Saturday to answer further questions and provide guidance on resources. No further needs, family returned to bedside, oxygen applied at 4 L via NC, will continue to monitor
[2018-07-20 16:26] VITALS: BP 133/40; PULSE 80; TEMP 97.7
--- NOTE | 2018-07-20 16:45 | NUR ---
This RN at bedside to answer questions about home hospice, process etc with several new family members including second DPOA. Family wants to wait to make final decision about possible comfort care until they speak with Demetra De Jesus tomorrow 07/21, and they plan to all be here at 1300 unless there's a better time for her. No further needs
--- NOTE | 2018-07-20 19:16 | NUR ---
Report given to carloz BARRON, pt resting calmly, no noted WOB or SOB, oygen at 4 L via NC. IV free of redness, swelling, fluids infsuing. No furthe rneeds
[2018-07-20 20:05] VITALS: BP 131/53; PULSE 67; TEMP 97.9
--- NOTE | 2018-07-20 20:50 | NUR ---
Shift assessment complete. Pt resting in bed, awake, a&o, cooperative c cares. Pt c/o chronic "arthritis"; scheduled pain medical officer psychiatry per orders/request. Pt denies increased SOB or other c/o. IV patent. O2 per NC. Tele in place. Pt denies further needs. Call light in reach, will monitor.
[2018-07-21 00:58] VITALS: BP 146/58; PULSE 90; TEMP 98.1
--- NOTE | 2018-07-21 02:37 | NUR ---
PT REFUSED TX SAID SHE DOESNT WANT ANYTHING. I TOLD HER I AM HERE ALL NIGHT IF YOU CHANGE YOUR MIND JUST TELL THE NURSE AND ILL COME GIVE YOU A TREATMENT. PT STATED OK.
[2018-07-21 06:06] LABS: HEMATOCRIT 37.1 % (37.0-47.0); HEMOGLOBIN 11.4 g/dl (12.5-16.0); MEAN CELL VOLUME 90 fl (80.0-100.0); MEAN CORPUSCULAR HEMOGLOBIN 28 pg (27.0-31.0); MEAN CORPUSCULAR HGB CONC 31 g/dl (33.0-37.0); MEAN PLATELET VOLUME 9.9 fl (7.4-10.4); PLATELET COUNT 146 K/mm3 (130-400); RED BLOOD COUNT 4.14 M/mm3 (4.10-5.30); REDCELL DISTRIBUTION WIDTH-CV 14.4 % (11.5-14.5)
[2018-07-21 06:27] LABS: CALCIUM 9.1 mg/dL (8.4-10.2); CREATININE, serum 0.88 mg/dL (0.52-1.25)
--- NOTE | 2018-07-21 07:05 | NUR ---
Pt resting in bed, condition unchanged. Pt has rested well this shift c very few needs. No needs at this time. Call light in reach, bed alarm on. Bedside report given to Brittnee BARRON to assume pt cares.
[2018-07-21 07:36] LABS: BAND 6 % (0-10); LYMPHOCYTE 3 % (20.0-51.0); NEUTROPHILS 91 % (42.0-75.2); PLATELET ESTIMATE DECREASED (NORMAL)
[2018-07-21 07:48] VITALS: BP 138/55; PULSE 83; TEMP 98
[2018-07-21 10:38] VITALS: BP 128/49; PULSE 76; TEMP 97.9
--- NOTE | 2018-07-21 12:47 | NUR ---
Pt alert and oriented. Pt eating crackers and drinking water. Pt ordered lunch and will have daughter get her some food to bring in for her. Pt rates pain 4/10 in low back. Pt has dyspnea with minimal exertion. Pt up to BSC x1 assist two times this am. Pt has had 200cc out of urine and 1 medium formed BM. Pt has bed alarm on for precaution but call for help when needs to get up. Pt remains on droplet precautions for RVP pending. Pt has call light in reach and denies needs at this time. IV patent and no infiltration or redness noted.
--- NOTE | 2018-07-21 14:00 | NUR ---
Meeting with family and patient at 1pm to discuss palliative care. Reviewed with family different focuses of medical care--aggressive, supportive, and comfort care. Also reviewed in detail what supportive care vs comfort care was. Discussed hospice care as a form of comfort care that can be done at [facility] if that is Teresa wish. Also reviewed that at this point, Teresa can choose to return [facility] as before and if time arises, can change mind and focus of care to that of comfort. After a long discussion, pt reported to her geriatric assistant who was sitting beside her that she may have changed her mind and may want to wait on starting hospice care. The family is now requesting to talk with Dr Mcneal about this as pt reported that "he didn't seem to think she needed hospice care at this point". Dr Mcneal has been advised and will plan to visit with them later today.
--- NOTE | 2018-07-21 14:40 | NUR ---
Pamphlets regarding the 4 local hospices were provided to john Cindy as requested.
--- NOTE | 2018-07-21 14:49 | NUR ---
PT WAS OFF O2 FOR 15 MIN. PT AT REST WAS 83%. 2L PLACED INCREASED TO 85. 3L REQUIRED TO KEEP PT IN THE 90'S.
--- NOTE | 2018-07-21 16:01 | NUR ---
JOSE RAUL collaborated with palliative care nurse, Demetra. The patient informed Demetra that she is not ready for hospice at this time. The patient would like to return back to [facility]. The patient's daughter was in agreeance and supportive of this plan. JOSE RAUL then contacted and updated Gema at [facility]. The patient also qualified for home oxygen. JOSE RAUL met with the patient and patient's daughter, Cindy, to discuss DME options and presented and explained the patient choice form for DME. The patient and her daughter preferred [facility]. The patient choice form was signed by the patient and she was provided a copy. JOSE RAUL then contacted and faxed the patient's oxygen order to Donovan at [facility]. JOSE RAUL awaiting to hear back from [facility].
[2018-07-21 16:37] VITALS: BP 126/45; PULSE 77; TEMP 98.2
--- NOTE | 2018-07-21 17:59 | NUR ---
Pt alert and oriented. Pt back pain managed with scheduled pain med. Pt plans to discharge tomorrow back to [place]. Pt wants oxygen unit of her own to go home with. Pt remains on oxygen via nasal cannula on 3L and saturation above 90%. Pt gets up to BSC x1 assist. Pt has call light in reach and resting with eyes closed in bed at this time and unlabored respirations.
--- NOTE | 2018-07-21 18:49 | NUR ---
Pt report given to Page BARRON. Pt supper has been ordered.
[2018-07-21 19:30] VITALS: BP 117/41; PULSE 81; TEMP 98.6
--- NOTE | 2018-07-21 20:47 | NUR ---
Shift assessment complete. Pt resting in bed, awake, a&o, cooperative c cares. Pt report chronic "arthritis" pain; will give sched pain med per orders. Pt denies increased SOB or any other c/o. IV patent. O2 per NC. Pt denies further needs. Call light in reach, bed alarm on. Will monitor.
[2018-07-21 23:58] VITALS: BP 125/41; PULSE 86; TEMP 98.6
[2018-07-22 04:12] VITALS: BP 139/43; PULSE 66; TEMP 97.9
--- NOTE | 2018-07-22 07:00 | NUR ---
Report received from ANDERSON Lackey
[2018-07-22 08:48] VITALS: BP 136/54; PULSE 72; TEMP 96.2
[2018-07-22] MEDS ORDERED: MUCUS RELIEF400 M1 PO (09:23)
[2018-07-22] MEDS ORDERED: PERFOROMIS20 MCG/2 M IH (09:23)
[2018-07-22] MEDS ORDERED: ZITHROMAX 250M250 MG PO (09:26)
[2018-07-22] MEDS ORDERED: PREDNISONE 5MG5 MG PO (09:26)
--- NOTE | 2018-07-22 09:41 | NUR ---
The patient is to discharge today, 07/22, back to [facility]. Transportation was set for 1130, via [facility]. SW informed the patient, patient's nurse, and the patient's daughter (Cindy), via phone. They were all in agreeance. Martin with [facility] reports that they will be delivering the patient's oxygen to her room before [facility] arrives. No additional needs at this time.
--- NOTE | 2018-07-22 11:40 | NUR ---
Patient discharge packet reviewed, follow up appts reviewed. [facility] staff here to pick her up and take her home. Packet also reviewed with the staff member. Patient wheeled out to Transportation van with portable O2. Patient discharges at this time.
== END 2018-07-22 11:40 | DRG 189 ==
LOC: COL.ER 20:11 → MEDICAL 22:32
PROVIDERS: Emergency Medicine; Internal Medicine Critical Care Medicine; Nurse Practitioner Family; ADMIT Hospitalist
DX: J96.01 Acute respiratory failure with hypoxia (principal); J44.1 Chronic obstructive pulmonary disease with (acute) exacerbation; N17.9 Acute kidney failure, unspecified; I50.32 Chronic diastolic (congestive) heart failure; E87.3 Alkalosis; R64 Cachexia; Z66 Do not resuscitate; I25.10 Atherosclerotic heart disease of native coronary artery without angina pectoris; Z95.5 Presence of coronary angioplasty implant and graft; Z87.891 Personal history of nicotine dependence; Z68.21 Body mass index [BMI] 21.0-21.9, adult; R91.1 Solitary pulmonary nodule
CPT/HCPCS: 99223-AI; 99232-AI; 99239; A4216; G0378; J0696; J1644; J2930; J7030; J7512